=== PATIENT | female | born 1955 | race Caucasian/White ===

== ENCOUNTER 2023-10-13 13:13 | Emergency (ER) | payer BC, SELFPAY ==
[2023-10-13 13:16] VITALS: BP 167/103; PULSE 105; RESP 20; TEMP 37.3; O2SAT 98; BMI 27.5
[2023-10-13 13:48] LABS: Basophils Percent Auto 0.3 % (0.2-2.0); Eosinophils Absolute Auto 0.1 10^3/uL (0.0-0.7); Eosinophils Percent Auto 0.6 % (0.9-7.0); Hemoglobin 14.4 g/dL (12.0-16.0); Immature Granulocytes Abs Auto 0.04 10^3/uL (0.00-0.03); Immature Granulocytes Pct Auto 0.3 % (0.0-0.5); Lymphocytes Absolute Auto 1.3 10^3/uL (1.2-3.8); Lymphocytes Percent Auto 10.9 % (20.5-60.0); Mean Corpuscular HGB Conc 32.7 g/dL (29.9-35.2); Mean Corpuscular Hemoglobin 29.1 pg (26.7-34.0); Mean Corpuscular Volume 88.9 fL (81.0-99.0); Mean Platelet Volume 9.9 fL (9.5-13.5); Monocytes Absolute Auto 0.7 10^3/uL (0.3-0.8); Monocytes Percent Auto 5.8 % (1.7-12.0); Neutrophils Absolute Auto 9.7 10^3/uL (1.4-6.5); Neutrophils Percent Auto 82.1 % (43.0-75.0); Platelet Count 289 10^3/uL (150-450); Red Blood Count 4.95 10^6/uL (4.20-5.40); Red Cell Distribution Width 13.3 % (11.0-15.0); White Blood Count 11.8 10^3/uL (4.0-11.0)
--- NOTE | 2023-10-13 13:53 | ED.NAVMDI1 ---
HPI - Nausea/Vomiting/Diarrhea General Chief complaint: Nausea/Vomiting/Diarrhea Stated complaint: DIARRHEA Time Seen by Provider: 10/13/23 13:24 Source: patient Mode of arrival: walk-in Limitations: no limitations History of Present Illness HPI Narrative: Patient is a 67-year-old female who presents to the emergency department for the evaluation of low abdominal pain, diarrhea and vomiting. Patient states 5 days ago she developed diarrhea and reports multiple episodes daily. She has a history of chronic hemorrhoids so she routinely has blood in her stool that is not worse or different. She reports diffuse abdominal cramping and pain in the low abdomen. She has had a previous tubal ligation, no other abdominal surgeries. She reports hot and cold chills with no objective fevers. No other upper respiratory symptoms. She states in the last days she has developed vomiting. No urinary symptoms. No sick contacts in the home. Related Data Previous Rx's Medication Instructions Recorded ciprofloxacin HCl 500 mg tablet 500 mg PO Q12H 10 days #20 tabs 10/13/23 hyoscyamine sulfate 0.125 mg 0.125 mg PO Q6H PRN abdominal pain 10/13/23 tablet (Levsin) #12 tabs metronidazole 500 mg tablet 500 mg PO Q12H 10 days #20 tabs 10/13/23 ondansetron 4 mg disintegrating 4 mg PO Q6H PRN nausea and 10/13/23 tablet vomiting #12 tabs promethazine 25 mg tablet 25 mg PO Q6H PRN nausea and 10/13/23 vomiting #12 tabs Allergies Allergy/AdvReac Type Severity Reaction Status Date / Time No Known Drug Allergies Allergy Verified 10/13/23 13:20 Review of Systems ROS Constitutional Denies: fever or chills Ears, nose, mouth, and throat Denies: throat pain or neck pain Cardiovascular Denies: chest pain Respiratory Denies: shortness of breath or cough Gastrointestinal Reports: abdominal pain, nausea, vomiting and diarrhea; Denies: constipation Musculoskeletal Denies: back pain or neck pain Integumentary/Breast Denies: rash Neurological Denies: headache Hematologic/Lymphatic Denies: easy bruising PFSH PFSH Social History Smoking status: Former smoker Exam Narrative Exam Narrative: Gen.: Awake, alert, in no distress Head: Normocephalic, atraumatic ENT: Moist mucous membranes Respiratory: No respiratory distress, lungs clear bilaterally Cardio: Regular rate and rhythm Gastrointestinal: Abdomen is soft, nondistended and diffusely mildly tender to palpation in the suprapubic abdomen, no guarding or rebound Extremities: Moves extremities equally Psych: Normal mood and affect Neuro: No focal neuro deficit Skin: Warm, dry, intact Constitutional Vital Signs, click to edit/add: Last Vital Signs Temp 99.1 F 10/13/23 13:16 Pulse 105 H 10/13/23 13:16 Resp 20 10/13/23 13:16 BP 167/103 H 10/13/23 13:16 Pulse Ox 98 10/13/23 13:16 O2 Del Method Room Air 10/13/23 13:16 Course Vital Signs Vital signs: Vital Signs Temperature 99.1 F 10/13/23 13:16 Pulse Rate 105 H 10/13/23 13:16 Respiratory Rate 20 10/13/23 13:16 Blood Pressure 167/103 H 10/13/23 13:16 Pulse Oximetry 98 10/13/23 13:16 Oxygen Delivery Method Room Air 10/13/23 13:16 Temperature 99.1 F 10/13/23 13:16 Pulse Rate 105 H 10/13/23 13:16 Respiratory Rate 20 10/13/23 13:16 Blood Pressure 167/103 H 10/13/23 13:16 Pulse Oximetry 98 10/13/23 13:16 Oxygen Delivery Method Room Air 10/13/23 13:16 MDM - Nausea/Vomiting/Diarrhea MDM Narrative Medical decision making narrative: Patient was treated with IV fluids, Zofran, Levsin. Additional Zofran was given as she continued to feel nauseous although she had no episodes of emesis in the ER. She did provide a stool specimen, GI panel is pending at this time. The remainder of her labs are grossly unremarkable. CT of the abdomen and pelvis with IV contrast shows proctocolitis and patient will be treated with Cipro, Flagyl, Zofran, Phenergan, Levsin for home. She was encouraged to increase clear fluids for the next several days and return to the ER if symptoms change or worsen. Follow-up with PCP. After the patient was discharged from the hospital, we received a phone call from the lab several hours later that the patient was positive for C. difficile on her stool culture. I contacted the patient and made her aware that she is positive for C. difficile, she should take only the metronidazole as the ciprofloxacin will not improve her C. difficile infection. Follow closely with PCP for retesting and return to the ER if symptoms change or worsen. She verbalized understanding over the phone. Medical Records Attestation: I reviewed the patient's medical records. Lab Data Attestation: I reviewed the patient's lab results. Labs: Lab Results 10/13/23 10/13/23 10/13/23 Range/Units 13:42 14:28 15:02 WBC 11.8 H (4.0-11.0) 10^3/uL RBC 4.95 (4.20-5.40) 10^6/uL Hgb 14.4 (12.0-16.0) g/dL Hct 44.0 (36.0-48.0) % MCV 88.9 (81.0-99.0) fL MCH 29.1 (26.7-34.0) pg MCHC 32.7 (29.9-35.2) g/dL RDW 13.3 (11.0-15.0) % Plt Count 289 (150-450) 10^3/uL MPV 9.9 (9.5-13.5) fL Neut % (Auto) 82.1 H (43.0-75.0) % Lymph % (Auto) 10.9 L (20.5-60.0) % Antelope % (Auto) 5.8 (1.7-12.0) % Eos % (Auto) 0.6 L (0.9-7.0) % Baso % (Auto) 0.3 (0.2-2.0) % Neut # (Auto) 9.7 H (1.4-6.5) 10^3/uL Lymph # (Auto) 1.3 (1.2-3.8) 10^3/uL Antelope # (Auto) 0.7 (0.3-0.8) 10^3/uL Eos # (Auto) 0.1 (0.0-0.7) 10^3/uL Baso # (Auto) 0.0 (0.0-0.1) 10^3/uL Abs Immat Gran (auto) 0.04 H (0.00-0.03) 10^3/uL Imm/Tot Granulo (auto) 0.3 (0.0-0.5) % Sodium 141 (136-145) mmol/L Potassium 3.3 L (3.5-5.1) mmol/L Chloride 103 (98-107) mmol/L Carbon Dioxide 26.8 (21.0-32.0) mmol/L Anion Gap 14.5 BUN 9.0 (7.0-18.0) mg/dL Creatinine 0.79 (0.55-1.02) mg/dL Est GFR ( Amer) >60 (>=60) Est GFR (Non-Af Amer) >60 (>=60) BUN/Creatinine Ratio 11.4 Glucose 118 H (74-106) mg/dL Lactate 1.0 (0.4-2.0) mmol/L Calcium 9.7 (8.5-10.1) mg/dL Total Bilirubin 0.3 (0.2-1.0) mg/dL AST 16 (15-37) U/L ALT 17 (14-59) U/L Alkaline Phosphatase 82 (46-116) U/L Total Protein 7.8 (6.4-8.2) g/dL Albumin 3.8 (3.4-5.0) g/dL Globulin 4.0 g/dL Albumin/Globulin Ratio 0.9 Lipase 23.0 (16.0-77.0) U/L Urine Color Yellow (YELLOW) Urine Clarity Clear (CLEAR) Urine pH 6.0 (5.0-9.0) Ur Specific Farner 1.025 (1.005-1.025) Urine Protein Negative (NEG/TRACE) mg/dL Urine Glucose (UA) Negative (NEGATIVE) mg/dL Urine Ketones >=80 A (NEGATIVE) mg/dL Urine Occult Blood Small A (NEGATIVE) Urine Nitrite Negative (NEGATIVE) Urine Bilirubin Negative (NEGATIVE) Urine Urobilinogen 0.2 (0.2-1.0) EU/dL Ur Leukocyte Esterase Negative (NEGATIVE) Urine RBC 5-10 A (0-2) #/HPF Urine WBC None seen (NONE SEEN) #/HPF Ur Squamous Epith Cells Few A (NONE/RARE) #/LPF Urine Crystals None seen (None Seen) #/HPF Urine Bacteria Small A (NONE SEEN) #/HPF Urine Casts None seen (NONE SEEN) #/LPF Urine Mucus Small A (NONE SEEN) Ur Culture Indicated? Yes Stl C. cayetanensis PCR Not detected (NOT DETECTE) Stool Rotavirus (PCR) Not detected (NOT DETECTE) Stool Adenovirus (PCR) Not detected (NOT DETECTE) Stool Astrovirus (PCR) Not detected (NOT DETECTE) Stool Campylobacter PCR Not detected (NOT DETECTE) Stool Cryptosporidium PCR Not detected (NOT DETECTE) St Sh/Enteroin Ecoli PCR Not detected (NOT DETECTE) Stl Enterotoxigenic E PCR Not detected (NOT DETECTE) Stool EPEC (PCR) Not detected (NOT DETECTE) Stl E. histolytica PCR Not detected (NOT DETECTE) Stool Giardia Lamblia PCR Not detected (NOT DETECTE) Stl P. shigelloides PCR Not detected (NOT DETECTE) Stool Salmonella PCR Not detected (NOT DETECTE) Stool Sapovirus (PCR) Not detected (NOT DETECTE) Stl Shiga-like Tx 1 PCR Not detected (NOT DETECTE) St Y.enterocolitica PCR Not detected (NOT DETECTE) Stl Vibrio cholerae PCR Not detected (NOT DETECTE) Stl Enteroaggr Ecoli PCR Not detected (NOT DETECTE) Stl Norovirus GI/GII PCR Not detected (NOT DETECTE) C. difficile Toxin A&B Detected A* (NOT DETECTE) Vibrio Culture Not detected (NOT DETECTE) Imaging Data CT scan - abdomen: Attestation: I have reviewed the pertinent imaging results. Radiologist's impression: Procedure: CT abdomen pelvis w con EXAM: CT scan of the abdomen and pelvis using 99 none mL of IV iodinated contrast. Dose reduction technique used: Automated exposure control and/or adjustment of the mA and/or kV according to patient size and/or use of iterative reconstruction technique. REASON FOR EXAM: abdominal pain/diarrhea COMPARISON: None FINDINGS: Diffuse wall thickening throughout nearly the entire colon and rectum with mild pericolonic fat stranding. Mildly enlarged right lower quadrant low-attenuation mesenteric lymph node posteriorly measuring 1.1 x 1.0 cm with central low-attenuation. Small esophageal hiatal hernia. Hypoenhancing 2.0 x 1.1 cm left adrenal nodule. Small left renal cyst. Small hepatic cyst. Diffuse bladder wall thickening versus incomplete distention. Colonic diverticulosis. Normal appendix. No free fluid in the abdomen or pelvis. No free intraperitoneal air. No dilated loops of small bowel or colon. No hydronephrosis or obstructing renal or ureteral calculi. Liver, pancreas, spleen, bilateral kidneys, and bilateral adrenal glands are otherwise unremarkable. Remainder unremarkable. IMPRESSION: 1. Findings compatible with proctocolitis. 2. Enlarged right lower quadrant mesenteric lymph node with central low-attenuation. This is indeterminate. Recommend follow-up CT in 3 months to ensure resolution. Electronically authenticated by: ZACARIAS PEDRAZA Date: 10/13/2023 15:05 Discharge Plan Discharge Chief Complaint: Nausea/Vomiting/Diarrhea Clinical Impression: Abdominal pain, vomiting, and diarrhea, Proctocolitis Patient Disposition: Home, Self-Care Time of Disposition Decision: 15:10 Condition: Good Prescriptions / Home Meds: New ciprofloxacin HCl 500 mg tablet 500 mg PO Q12H 10 Days Qty: 20 0RF metronidazole 500 mg tablet 500 mg PO Q12H 10 Days Qty: 20 0RF hyoscyamine sulfate [Levsin] 0.125 mg tablet 0.125 mg PO Q6H PRN (Reason: abdominal pain) Qty: 12 0RF promethazine 25 mg tablet 25 mg PO Q6H PRN (Reason: nausea and vomiting) Qty: 12 0RF ondansetron 4 mg tablet,disintegrating 4 mg PO Q6H PRN (Reason: nausea and vomiting) Qty: 12 0RF Instructions: Acute Nausea and Vomiting (ED), Nutrition Tips for Relief of Diarrhea (ED), Colitis (ED) Stand Alone Forms: Portal Instructions Referrals: NICOLETTE MARTINEZ [Primary Care Provider] - 1 week Discharge Date/Time: 10/13/23 15:36
--- NOTE | 2023-10-13 13:56 | CT_ITS ---
The [address] [address] Patient Name: CARSON JEFFERS MRN: [id number] date: 1955 Sex: F Assigned Patient Location: ER Current Patient Location: ER Accession/Order Number: [id number] Exam Date: 10/13/2023 14:30 Report Date: 10/13/2023 15:05 At the request of: YOSELIN MENJIVAR Procedure: CT abdomen pelvis w con EXAM: CT scan of the abdomen and pelvis using 99 none mL of IV iodinated contrast. Dose reduction technique used: Automated exposure control and/or adjustment of the mA and/or kV according to patient size and/or use of iterative reconstruction technique. REASON FOR EXAM: abdominal pain/diarrhea COMPARISON: None FINDINGS: Diffuse wall thickening throughout nearly the entire colon and rectum with mild pericolonic fat stranding. Mildly enlarged right lower quadrant low-attenuation mesenteric lymph node posteriorly measuring 1.1 x 1.0 cm with central low-attenuation. Small esophageal hiatal hernia. Hypoenhancing 2.0 x 1.1 cm left adrenal nodule. Small left renal cyst. Small hepatic cyst. Diffuse bladder wall thickening versus incomplete distention. Colonic diverticulosis. Normal appendix. No free fluid in the abdomen or pelvis. No free intraperitoneal air. No dilated loops of small bowel or colon. No hydronephrosis or obstructing renal or ureteral calculi. Liver, pancreas, spleen, bilateral kidneys, and bilateral adrenal glands are otherwise unremarkable. Remainder unremarkable. CT/CT abdomen pelvis w con IMPRESSION: 1. Findings compatible with proctocolitis. 2. Enlarged right lower quadrant mesenteric lymph node with central low-attenuation. This is indeterminate. Recommend follow-up CT in 3 months to ensure resolution. Electronically authenticated by: ZACARIAS PEDRAZA Date: 10/13/2023 15:05
[2023-10-13 14:08] LABS: Alanine Aminotransferase 17 U/L (14-59); Albumin Globulin Ratio 0.9; Albumin Level 3.8 g/dL (3.4-5.0); Alkaline Phosphatase 82 U/L (46-116); Anion Gap 14.5; Aspartate Amino Transferase 16 U/L (15-37); BUN Creatinine Ratio 11.4; Bilirubin Total 0.3 mg/dL (0.2-1.0); Calcium 9.7 mg/dL (8.5-10.1); Carbon Dioxide 26.8 mmol/L (21.0-32.0); Chloride 103 mmol/L (98-107); Estimated GFR (African America >60 (>=60); Estimated GFR (Non-African Ame >60 (>=60); Glucose 118 mg/dL (74-106); Potassium 3.3 mmol/L (3.5-5.1); Sodium 141 mmol/L (136-145); Total Protein 7.8 g/dL (6.4-8.2)
[2023-10-13] MEDS: ONDANSETRON PF 4 MG/2 ML VIAL IV ×2 (14:24→15:22)
[2023-10-13] MEDS: HYOSCYAMINE SULFATE 0.125 MG TAB.SUBL SL (14:24)
[2023-10-13] MEDS: 0.9 % SODIUM CHLORIDE 1,000 ML 999 ML IV (14:26)
[2023-10-13 14:37] LABS: Bilirubin Urine NEGATIVE (NEGATIVE); Blood Urine SMALL (NEGATIVE); Clarity Urine CLEAR (CLEAR); Color Urine YELLOW (YELLOW); Glucose Urine UA NEGATIVE (NEGATIVE); Ketones Urine >=80 mg/dL (NEGATIVE); Leukocyte Esterase Urine NEGATIVE (NEGATIVE); Nitrite Urine NEGATIVE (NEGATIVE); Protein Urine NEGATIVE (NEG/TRACE); Specific Gravity Urine 1.025 (1.005-1.025); Urobilinogen Urine 0.2 EU/dL (0.2-1.0)
[2023-10-13 14:40] LABS: Urine Microscopic Indicated YES
[2023-10-13 14:55] LABS: Bacteria Urine SMALL #/HPF (NONE SEEN); Cast Seen? NONE SEEN #/LPF (NONE SEEN); Crystals Seen? None Seen #/HPF (None Seen); Mucus Urine SMALL (NONE SEEN); Squamous Epithelial Cell Urine FEW #/LPF (NONE/RARE); Urine Culture Indicated YES; WBC Urine NONE SEEN #/HPF (NONE SEEN)
[2023-10-13 15:08] LABS: Adenovirus F 40/41 NOT DETECTED (NOT DETECTE); Astrovirus NOT DETECTED (NOT DETECTE); Campylobacter NOT DETECTED (NOT DETECTE); Cryptosporidium NOT DETECTED (NOT DETECTE); Cyclospora cayetanensis NOT DETECTED (NOT DETECTE); Entamoeba histolytica NOT DETECTED (NOT DETECTE); Enteroaggregative E.coli NOT DETECTED (NOT DETECTE); Enteropathogenic E.coli NOT DETECTED (NOT DETECTE); Enterotoxigenic E. coli NOT DETECTED (NOT DETECTE); Giardia lamblia NOT DETECTED (NOT DETECTE); Norovirus GI/GII NOT DETECTED (NOT DETECTE); Plesiomonas shigelloides NOT DETECTED (NOT DETECTE); Rotavirus A NOT DETECTED (NOT DETECTE); Salmonella NOT DETECTED (NOT DETECTE); Sapovirus NOT DETECTED (NOT DETECTE); Shiga-like toxin-producing E.C NOT DETECTED (NOT DETECTE); Shigella/Enteroinvasive E.coli NOT DETECTED (NOT DETECTE); Vibrio NOT DETECTED (NOT DETECTE); Vibrio cholerae NOT DETECTED (NOT DETECTE); Yersinia enterocolitica NOT DETECTED (NOT DETECTE)
== END 2023-10-13 15:36 | disposition home or self-care (01) ==
PROVIDERS: Physician Assistant; Emergency Provider Emergency Medicine; PCP Family Medicine
DX: K51.20 Ulcerative (chronic) proctitis without complications (principal); R10.30 Lower abdominal pain, unspecified; Z98.51 Tubal ligation status; Z87.891 Personal history of nicotine dependence; A04.72 Enterocolitis due to Clostridium difficile, not specified as recurrent; R11.2 Nausea with vomiting, unspecified
CPT/HCPCS: 36415; 74177; 80053; 81001; 83605; 83690; 85025; 87086; 87507; 96361; 96374; 96376; 99285; Q9967